=== PATIENT | female | born 1985 | race Caucasian/White ===

== ENCOUNTER 2025-01-02 11:44 | Emergency (ER) | payer MEDICAID, SELFPAY ==
[2025-01-02 11:46] VITALS: BP 128/78; PULSE 118; RESP 16; TEMP 36.9; O2SAT 95; BMI 28.1
--- NOTE | 2025-01-02 12:15 | ECG_ITS ---
[facility] 2025[facility]02 Pat Name: Chika Hare Department: Room: Gender: Female Sterile Technician: : 1985 Requested By: Chema Miller Order Number: [id number] Champ MD: VANDANA WITT Measurements Intervals Wells Rate: 83 P: 56 NC: 124 QRS: 79 QRSD: 83 T: 61 QT: 363 QTc: 427 Interpretive Statements SINUS RHYTHM No previous ECG available for comparison Electronically Signed On 01-04-2025 23:37:35 OBGYN HOSPITALIST PHYSICIAN by VANDANA WITT [email or web address]
[2025-01-02 12:33] LABS: Add Urine Microscopic? NO
[2025-01-02 12:39] LABS: Bilirubin Urine Negative (Negative); Blood Urine Negative (Negative); Glucose Urine UA Negative (Normal); Ketones Urine Negative (Negative); Leukocyte Esterase Urine Negative (Negative); Nitrate Urine Negative (Negative); Protein Urine Negative (Negative); Specific Gravity, Urine 1.003 (1.005-1.030); Urine Appearance Clear (CLEAR); Urine Color Yellow (Yellow); Urobilinogen Urine 0.2 mg/dL (Negative); pH Urine 6.5 (5-7)
[2025-01-02 12:40] LABS: HCG Qualitative Urine. Negative (Negative)
[2025-01-02 12:46] LABS: Amphetamines Screen Urine Negative (Negative); Barbiturates Screen Urine Negative (Negative); Benzodiazepines Screen Urine Negative (Negative); Cocaine Screen Urine Negative (Negative); Opiate Screen Urine Negative (Negative); PCP Screen Urine Negative (Negative); THC Screen Urine Positive (Negative)
[2025-01-02 12:51] LABS: Basophils % 0.4 %; Eosinophils % 0.4 %; Lymphocytes # 1.9 10^3/uL (0.8-4.8); Lymphocytes % 22.7 %; Mean Corpuscular HGB Conc 33.6 g/dL (30-55); Mean Corpuscular Hemoglobin 29.4 pg (27-33); Mean Corpuscular Volume 87.5 fl (85-98); Monocytes # 0.6 10^3/uL (0.2-0.9); Monocytes % 6.9 %; Neutrophils # 5.87 10^3/uL (1.8-7.7); Neutrophils % 69.4 %; Nucleated Red Blood Cells % 0 %; Platelet Count 232 10^3/cmm (157-399); Red Blood Count 5.03 10^6/uL (3.85-5.65); Red Cell Distribution Width 13.1 % (12.1-15.1); White Blood Count 8.45 10^3/uL (3.29-11.43)
[2025-01-02 12:57] LABS: Charge for UA Resulting for Rev
[2025-01-02 13:14] LABS: Influenza A NEGATIVE (Negative); Influenza B NEGATIVE (Negative); Respiratory Syncytial Virus Ce NEGATIVE (Negative); SARS-CoV-2 PCR NEGATIVE (Negative)
[2025-01-02 13:16] LABS: Alanine Aminotransferase 22 U/L (0-33); Albumin Level 4.3 g/dL (3.5-5.2); Alkaline Phosphatase 64 U/L (35-105); Anion Gap 17.2 (5-19); Aspartate Amino Transferase 23 U/L (0-32); Blood Urea Nitrogen 4 mg/dL (6-20); Calcium 9.8 mg/dL (8.5-10.5); Carbon Dioxide 23 mmol/L (22-29); Chloride 102 mmol/L (98-107); Globulin 2.8 g/dL (1.3-4.6); Glomerular Filtration Rate 94.2 mL/min (90-130); Glucose 108 mg/dL (65-115); Osmolality Calculated 285 mOsm/kg (285-295); Potassium 3.2 mmol/L (3.5-5.1); Sodium 139 mmol/L (136-145); Thyroid Stimulating Hormone 0.97 uIU/mL (0.27-4.20); Total Bilirubin 0.6 mg/dL (0.15-1.2); Total Protein 7.1 g/dL (6.6-8.7)
[2025-01-02 13:21] LABS: Acetaminophen < 5.0 ug/mL (10-30); Alcohol Level < 10 mg/dL (0-10); Salicylate < 0.3 mg/dL (3-10)
--- NOTE | 2025-01-02 15:17 | ED.C_ITS ---
HPI - Psych 2 General: Chief Complaint: Psychiatric Symptoms Stated Complaint: mhe Time Seen by Provider: 01/02/25 11:50 History of Present Illness: This patient is a 39-year-old white female brought in for psychiatric evaluation. Patient was found wandering around in her neighbors yard barefoot and without a coat. She had laid down in the yard evidently and put her hands over her face. Someone in the neighborhood called the police. Patient would not communicate with the police. They took her to the station and were able to determine her name. The traffic police officer did fill out affidavit. My interview with the patient was limited however she did state that she is not suicidal nor is she homicidal. According to nursing staff patient was making strange statements, her hair is going to come off of her head and strangle the nurses . Later during the ER stay the patient wandered off into another patient's room and stated my room has been compromised . When the tech placed the EKG leads on the patient she states that we were trying to electrocute her. nurse Loreta did discover that the patient had prescriptions filled within the last couple of weeks of her Rexulti and 2 separate prescriptions for sertraline. Associated symptoms: Reports delusions Related Data Home Medications ?Medication ?Instructions ?Recorded ?Confirmed brexpiprazole 2 mg tablet (Rexulti) 2 mg PO DAILY 12/1201/02/25 sertraline 100 mg tablet 100 mg PO DAILY 01/02/25 sertraline 50 mg tablet 75 mg PO DAILY 01/02/2512/12 Review of Systems 2 General: Reports: ROS unobtainable due to mental status Physical Exam 2 Const: COMMON NORMALS: no acute distress, patient oriented x3 and no limitations GENERAL APPEARANCE: cooperative and comfortable HENMT: COMMON NORMALS: normocephalic, atraumatic, Normal nasal mucous membranes and turbinates present, moist oral mucous membranes and oropharynx normal HEAD & SCALP: normal to inspection, normocephalic and atraumatic F MARIA FERNANDA & SINUS: normal facial exam NOSE: Normal nasal mucous membranes and turbinates present Eye: COMMON NORMALS: Equal, round and reactive pupils present, EOMs intact bilaterally and conjunctivae normal GENERAL EYE: appearance normal, both eyes and all related structures CONJUNCTIVA: Yes conjunctivae normal PUPIL: Yes Equal, round and reactive pupils present Neck/C-Spine: COMMON NORMALS: supple and no JVD Chest: COMMONS NORMALS: normal inspection of the chest Resp: COMMON NORMALS: normal respiratory effort and clear to auscultation bilaterally AUSCULTATION: clear to auscultation bilaterally Cardio: COMMON NORMALS: no JVD, regular rate, regular rhythm, No gallops present (Cardio), No murmurs present (Cardio) and No rub (Cardio) RATE: r egular rate RHYTHM: regular rhythm GI: COMMON NORMALS: Normal to inspection, nondistended, normoactive bowel sounds present, Soft to palpation and non-tender AUSCULTATION: Yes normoactive bowel sounds PALPATION: Yes Soft to palpation : COMMON NORMALS: Yes no CVA tenderness BLADDER/KIDNEY EXAM: Yes no CVA tenderness Back/Pelvis: COMMON NORMALS: no CVA tenderness and thoracic and lumbar spine normal to inspection Extremity: COMMON NORMALS: normal to inspection Neuro: COMMON NORMALS: patient oriented x3 and CN's II-XII intact bilaterally Psych: THOUGHT PROCESS: Illogical thought process present THOUGHT CONTENT: Yes delusions Skin: COMMON NORMALS: no rashes or lesions noted, turgor normal and no jaundice GENERAL SKIN EXAM: no rashes or lesions noted and turgor normal Course 2 Vital Signs: Vital signs: Vital Signs Temperature 98.5 F 01/02/25 11:46 Pulse Rate 118 H 01/02/25 11:46 Respiratory Rate 16 01/02/25 11:46 Blood Pressure 128/78 01/02/25 11:46 Pulse Oximetry 95 01/02/25 11:46 Oxygen Delivery Me thod Room Air 01/02/25 11:46 MDM - Psych Medical Decision Making EKG revealed sinus rhythm with no ST segment abnormalities. CBC and CMP were normal. TSH was normal at 0.97. Alcohol level was less than 10. Negative salicylate and acetaminophen levels. Influenza, COVID and RSV negative. Urine analysis normal. test negative. Urine drug screen positive for THC. Patient appears to be psychotic. I discussed the case with Dr. Ruiz, psychiatrist. He states he will admit the patient here if there is a bed available. We discovered there are no beds available. We are currently searching for a facility for the patient to go to. She is stable. Patient has been accepted at [facility]. She will be transferred as soon as the bed is available and we have transportation. She is stable. Lab Data 01/02/25 12:39 01/02/25 12:39 Laboratory Results WBC 8.45 10^3/uL (3.29-11.43) 01/02/25 12:39 RBC 5.03 10^6/uL (3.85-5.65) 01/02/25 12:39 Hgb 14.80 g/dL (11.27-16.99) 01/02/25 12:39 Hct 44.0 % (36-47) 01/02/25 12:39 MCV 87.5 fl (85-98) 01/02/25 12:39 MCH 29.4 pg (27-33) 01/02/25 12:39 MCHC 33.6 g/dL (30-55) 01/02/25 12:39 RDW 13.1 % (12.1-15.1) 01/02/25 12:39 Plt Count 232 10^3/cmm (157-399) 01/02/25 12:39 MPV 11.0 fL (7.4-10.4) H 01/02/25 12:39 Neut % (Auto) 69.4 % 01/02/25 12:39 Lymph % (Auto) 22.7 % 01/02/25 12:39 Roosevelt % (Auto) 6.9 % 01/02/25 12:39 Eos % (Auto) 0.4 % 01/02/25 12:39 Baso % (Auto) 0.4 % 01/02/25 12:39 Neut # (Auto) 5.87 10^3/uL (1.8-7.7) 01/02/25 12:39 Lymph # (Auto) 1.9 10^3/uL (0.8-4.8) 01/02/25 12:39 Roosevelt # (Auto) 0.6 10^3/uL (0.2-0.9) 01/02/25 12:39 Eos # (Auto) 0.0 10^3/uL (0.0-0.8) 01/02/25 12:39 Baso # (Auto) 0.0 10^3/uL (0.0-0.1) 01/02/25 12:39 Nucleated RBC % (auto) 0 % 01/02/25 12:39 Nucleated RBCs # 0.0 /100WBC 01/02/25 12:39 Sodium 139 mmol/L (136-145) 01/02/25 12:39 Potassium 3.2 mmol/L (3.5-5.1) L 01/02/25 12:39 Chloride 102 mmol/L (98-107) 01/02/25 12:39 Carbon Dioxide 23 mmol/L (22-29) 01/02/25 12:39 Anion Gap 17.2 (5-19) 01/02/25 12:39 BUN 4 mg/dL (6-20) L 01/02/25 12:39 Creatinine 0.7 mg/dL (0.5-0.9) 01/02/25 12:39 GFR Calculation 94.2 mL/min (90-130) 01/02/25 12:39 Glucose 108 mg/dL (65-115) 01/02/25 12:39 Calculated Osmolality 285 mOsm/kg (285-295) 01/02/25 12:39 Calcium 9.8 mg/dL (8.5-10.5) 01/02/25 12:39 Total Bilirubin 0.6 mg/dL (0.15-1.2) 01/02/25 12:39 AST 23 U/L (0-32) 01/02/25 12:39 ALT 22 U/L (0-33) 01/02/25 12:39 Alkaline Phosphatase 64 U/L (35-105) 01/02/25 12:39 Total Protein 7.1 g/dL (6.6-8.7) 01/02/25 12:39 Albumin 4.3 g/dL (3.5-5.2) 01/02/25 12:39 Globulin 2.8 g/dL (1.3-4.6) 01/02/25 12:39 TSH 0.97 uIU/mL (0.27-4.20) 01/02/25 12:39 HCG, Qual Negative (Negative) 01/02/25 11:53 Urine Color Yellow (Yellow) 01/02/25 11:53 Urine Appearance Clear (CLEAR) 01/02/25 11:53 Urine pH 6.5 (5-7) 01/02/25 11:53 Ur Specific [place] 1.003 (1.005-1.030) L 01/02/25 11:53 Urine Protein Negative (Negative) 01/02/25 11:53 Urine Glucose (UA) Negative (Normal) 01/02/25 11:53 Urine Ketones Negative (Negative) 01/02/25 11:53 Urine Blood Negative (Negative) 01/02/25 11:53 Urine Nitrate Negative (Negative) 01/02/25 11:53 Urine Bilirubin Negative (Negative) 01/02/25 11:53 Urine Urobilinogen 0.2 mg/dL (Negative) 01/02/25 11:53 Ur Leukocyte Esterase Negative (Negative) 01/02/25 11:53 Amorphous Sediment Not Reportable 01/02/25 11:53 Salicylates < 0.3 mg/dL (3-10) L 01/02/25 12:39 Urine Opiates Screen Negative ng/mL (Negative) 01/02/25 11:53 Acetaminophen < 5.0 ug/mL (10-30) L 01/02/25 12:39 Ur Barbiturates Screen Negative ng/mL (Negative) 01/02/25 11:53 Ur Phencyclidine Scrn Negative ng/mL (Negative) 01/02/25 11:53 Ur Amphetamines Screen Negative ng/mL (Negative) 01/02/25 11:53 U Benzodiazepines Scrn Negative ng/mL (Negative) 01/02/25 11:53 Urine Cocaine Screen Negative ng/mL (Negative) 01/02/25 11:53 U Marijuana (THC) Screen Positive ng/mL (Negative) H 01/02/25 11:53 Ethyl Alcohol < 10 mg/dL (0-10) 01/02/25 12:39 Influenza A (PCR) Negative (Negative) 01/02/25 12:20 Influenza Type B (PCR) Negative (Negative) 01/02/25 12:20 RSV (PCR) Negative (Negative) 01/02/25 12:20 SARS-CoV-2 (PCR) Negative (Negative) 01/02/25 12:20 No radiology studies performed this visit Discharge Plan Discharge Patient Disposition: Xfer Psychiatric Hosp Clinical Impression: Acute psychosis Condition: Stable Print Language: German Coding Level of Care Code ED Used [employer] for [employer]
--- NOTE | 2025-01-02 15:54 | PC.NURSE ---
96 hour hold rights read and reviewed with patient. Lowell from security present during reading of rights. Patient became very tearful and screamed No and continued to cry. Copy of rights was given to patient.
[2025-01-02] MEDS: haloperidol inj 5 mg/mL INJ 1 mL IM (16:02)
[2025-01-02] MEDS: diphenhydrAMINE 50 mg/mL SDV 1mL IM (16:02)
[2025-01-02] MEDS: LORazepam 2 mg/mL INJ 1 mL IM (16:02)
[2025-01-02 18:44] VITALS: BP 114/84; PULSE 104; O2SAT 94
--- NOTE | 2025-01-02 19:33 | PC.NURSE ---
this nurse took report at 1900 for pt.
[2025-01-02 19:35] VITALS: BP 128/85; PULSE 118; O2SAT 96
== END 2025-01-02 19:36 ==
PROVIDERS: Emergency Provider Emergency Medicine
DX: F23 Brief psychotic disorder (principal); Z11.52 Encounter for screening for COVID-19
CPT/HCPCS: 80053; 80306; 80307; 81003; 81025; 84443; 85025; 87637; 93005; 96372; 99285; J1200; J1630; J2060

== ENCOUNTER → 2025-05-26 14:41 | Outpatient (BNVA) | payer OTHER, SELFPAY | DX: F31.5 Bipolar disorder, current episode depressed, severe, with psychotic features (principal); F43.12 Post-traumatic stress disorder, chronic | CPT/HCPCS: 80053; 80061; 80164; 83036; 84443; 85025 ==